=== PATIENT | male | born 1955 | race Caucasian/White ===

== ENCOUNTER 2018-04-07 17:37 | Observation (INO) | payer MEDICARE ==
[2018-04-07] MEDS ORDERED: NITROGLYCERIN SL TABS 0.4 MG TAB SUBLINGUAL STA (17:53)
[2018-04-07] MEDS ORDERED: ASPIRIN 81 MG PO STA (17:53)
--- NOTE | 2018-04-07 17:58 | ED ---
Chest Pain HPI - General Chief Complaint: Chest Pain Stated Complaint: chest pain/high BP Time Seen by Provider: 04/07/18 17:48 Source: patient, RN notes reviewed Mode of arrival: ambulatory Limitations: no limitations - History of Present Illness Initial Comments: This is a 63-year-old male who states he had the onset around 4 PM today of midsternal chest pain 5/10 severity dull in nature does not seem to get worse with movement or deep breathing. He states he has similar episode last evening and lasted for quite a while then resolved spontaneously. He denies any shortness of breath fevers chills nausea vomiting sweats or other symptoms. Of note he does have a recent left 12th rib fracture from a fall while cutting wood also had right shoulder surgery done recently. No cough or phlegm production or other modifying factors at this time MD Complaint: chest pain - Related Data Home Medications Medication Instructions Recorded Confirmed Albuterol Inhaler [Ventolin Hfa 2 puff INHALATION RT-Q8H 04/07/18 04/07/18 Inhaler] Ascorbic Acid [Vitamin C] 500 mg PO DAILY 04/07/18 04/07/18 Aspirin [[place] Aspirin EC] 81 mg PO DAILY 04/07/18 04/07/18 Ferrous Sulfate [Feosol] 325 mg PO DAILY 04/07/18 04/07/18 Fish Oil/Dha/Epa [Fish Oil 1,200 2,400 mg PO DAILY 04/07/18 04/07/18 mg Fish Oil] Lisinopril 20 mg PO DAILY 04/07/18 04/07/18 Multivitamins, Thera [Multivitamin 1 tab PO DAILY 04/07/18 04/07/18 (formulary)] Ranitidine HCl [Zantac] 75 mg PO DAILY 04/07/18 04/07/18 Allergies Allergy/AdvReac Type Severity Reaction Status Date / Time atorvastatin [From Lipitor] AdvReac Unknown Verified 04/07/18 18:50 Review of Systems ROS Statement: Those systems with pertinent positive or pertinent negative responses have been documented in the HPI. ROS Other: All systems not noted in ROS Statement are negative. EKG Findings - EKG Results: EKG: interpreted by [place], sinus rhythm (Sinus rhythm a 64. MN interval 182 QRS duration 102 QT since QTC 406/418 minimal voltage criteria for LVH no acute ST- T wave changes) Past Medical History Past Medical History: Hypertension History of Any Multi-Drug Resistant Organisms: None Reported Additional Past Surgical History / Comment(s): shoulder replacement- 5 weeks ago. broken rib. Past Psychological History: No Psychological Hx Reported Smoking Status: Never smoker Past Alcohol Use History: Occasional Past Drug Use History: None Reported General Exam - General Exam Comments Initial Comments: This is a well-developed well-nourished awake alert oriented 3 male Limitations: no limitations General appearance: alert, in no apparent distress Head exam: Present: atraumatic, normocephalic, normal inspection Eye exam: Present: normal appearance, PERRL, EOMI. Absent: scleral icterus, conjunctival injection, periorbital swelling ENT exam: Present: normal exam, mucous membranes moist Neck exam: Present: normal inspection. Absent: tenderness, meningismus, lymphadenopathy Respiratory exam: Present: normal lung sounds bilaterally, chest wall tenderness (Chest wall tenderness or left lower chest wall no definite reproducibility of anterior chest wall discomfort). Absent: respiratory distress, wheezes, rales, rhonchi, stridor Cardiovascular Exam: Present: regular rate, normal rhythm, normal heart sounds. Absent: systolic murmur, diastolic murmur, rubs, gallop, clicks GI/Abdominal exam: Present: soft, normal bowel sounds. Absent: distended, tenderness, guarding, rebound, rigid Extremities exam: Present: normal inspection, full ROM, normal capillary refill. Absent: tenderness, pedal edema, joint swelling, calf tenderness Back exam: Present: normal inspection Neurological exam: Present: alert, oriented X3, CN II-XII intact Psychiatric exam: Present: normal affect, normal mood Skin exam: Present: warm, dry, intact, normal color. Absent: rash Course Vital Signs 04/07/18 04/07/18 17:39 20:38 Temperature 97 F L Pulse Rate 65 66 Respiratory 16 18 Rate Blood Pressure 169/91 156/94 O2 Sat by Pulse 98 97 Oximetry Chest Pain MDM - MDM I did review the imaging and report no acute findings his d-dimer was elevated a CAT scan was performed and no evidence of a pulmonary embolus. I did a long discussion with him and his family. He had recurrent chest pain it is suspicious for cardiac no the initial workup was negative he will be admitted for evaluation I did discuss the case with the hospitalist. Disposition Clinical Impression: Atypical chest pain, Chest pain, Unstable angina pectoris Disposition: ADMITTED IP TO THIS HOSP Condition: Stable Referrals: Nonstaff,Physician [Primary Care Provider] - 1-2 days
[2018-04-07 18:25] LABS: Basophils % (A) 1 %; Eosinophils # (A) 0.2 k/uL (0-0.7); Eosinophils % (A) 3 %; HCT 41.5 % (39.0-53.0); HGB 13.3 gm/dL (13.0-17.5); Lymphocytes # (A) 0.9 k/uL (1.0-4.8); Lymphocytes % (A) 13 %; MCHC 32.1 g/dL (31.0-37.0); MCV 90.2 fL (80.0-100.0); Mean Platelet Volume 8.8; Monocytes # (A) 0.5 k/uL (0-1.0); Monocytes % (A) 7 %; Neutrophils # (A) 5.3 k/uL (1.3-7.7); Neutrophils % (A) 74 %; Platelet Count 200 k/uL (150-450); RDW 12.9 % (11.5-15.5); WBC 7.1 k/uL (3.8-10.6)
--- NOTE | 2018-04-07 18:28 | XR ---
EXAMINATION TYPE: XR chest 2V DATE OF EXAM: 04/07/2018 COMPARISON: NONE HISTORY: Chest pain TECHNIQUE: Frontal and lateral views of the chest are obtained. FINDINGS: There is large hiatal hernia. There is no heart failure nor confluent pneumonic infiltrate . There are chest leads. There is right shoulder prosthesis. There is spurring in the thoracic spine. Costophrenic angles are clear. IMPRESSION: No active cardiopulmonary disease.
[2018-04-07 18:34] LABS: Albumin 4.1 g/dL (3.5-5.0); Calcium 9.6 mg/dL (8.4-10.2); Magnesium 1.9 mg/dL (1.6-2.3); Potassium 4.6 mmol/L (3.5-5.1); Total Bilirubin 0.4 mg/dL (0.2-1.3); Total Protein 7.7 g/dL (6.3-8.2)
[2018-04-07 18:37] LABS: Creatine Kinase 219 U/L (55-170)
[2018-04-07 18:44] LABS: INR 0.9 (<1.2); Partial Thromboplastin Time 23.4 sec (22.0-30.0); Prothrombin Time 9.8 sec (9.0-12.0)
[2018-04-07 18:47] LABS: D-Dimer 5.5 mg/L FEU (<0.60)
[2018-04-07 18:50] LABS: Creatine Kinase MB 2.2 ng/mL (0.0-2.4); Troponin I <0.012 ng/mL (0.000-0.034)
--- NOTE | 2018-04-07 20:23 | CT ---
EXAMINATION TYPE: CT angio chest DATE OF EXAM: 04/07/2018 7:42 PM COMPARISON: None HISTORY: Chest pain. CT DLP: 626 mGycm Automated exposure control for dose reduction was used. CONTRAST: CTA scan of the thorax is performed with IV Contrast, patient injected with 80ml mL of Isovue 370, pu lmonary embolism protocol. There are 3-D post processed images.. FINDINGS: There is a large hiatal hernia. There is no pericardial effusion. Heart is slightly enlarged. There i s no pleural effusion. There are no hilar masses. There is no mediastinal adenopathy. There is normal contrast opacification of the pulmonary arteries. I see no filling defect. There is a right shoulder prosthesis. Thoracic spine is intact. Thoracic aorta is intact. There is no evidence of aneurysm or dissection. Ascending aorta measures 3.8 cm. IMPRESSION: NO EVIDENCE OF PULMONARY EMBOLISM. NO PULMONARY INFILTRATES. LARGE HIATAL HERNIA.
[2018-04-07] MEDS ORDERED: NITROGLYCERIN SL TABS 0.4 MG TAB SUBLINGUAL PRN (20:51)
[2018-04-07] MEDS ORDERED: HEPARIN SODIUM,PORCINE 5,000 UNIT/ML 1 ML VIAL IV ONE (20:51)
[2018-04-07] MEDS ORDERED: HEPARIN SOD,PORK IN 0.45% NACL 25,000 UNIT in 0.45% NACL 1 250ML.BAG IV SCH (21:00)
[2018-04-07 22:10] VITALS: BMI 33.8
[2018-04-07] MEDS ORDERED: MELATONIN 3 MG TABLET PO SCH ×2 (23:15→23:45)
[2018-04-07] MEDS ORDERED: ACETAMINOPHEN TAB 325 MG TAB PO PRN (23:24)
[2018-04-07] MEDS ORDERED: MAG HYDROX/AL HYDROX/SIMETH 30 ML, HYOSCYAMINE ELIXIR 10 ML, CIMETIDINE HCL 300 MG, LID... PO ONE ×4 (23:33)
[2018-04-08] MEDS: PANTOPRAZOLE 40 MG TABLET PO SCH ×2 (00:11→09:10)
[2018-04-08 00:14] LABS: Creatine Kinase 184 U/L (55-170)
[2018-04-08 00:26] LABS: Creatine Kinase MB 1.6 ng/mL (0.0-2.4); Troponin I <0.012 ng/mL (0.000-0.034)
[2018-04-08] MEDS ORDERED: NALOXONE 0.4 MG/ML 1 ML VIAL IV PRN (01:19)
--- NOTE | 2018-04-08 01:33 | P.HPIM ---
History of Present Illness H&P Date: 04/07/18 Chief Complaint: Epigastric discomfort and pain 63-year-old male with history of hypertension. Patient presented to the hospital due to epigastric abdominal pain. He reports that he had some epigastric discomfort the night before but that resolved on its own however on day of presentation at around 4 PM he had epigastric abdominal pain sharp in nature rated at 5 out of 10 in severity currently is 3 out of 10 in severity. Nonradiating not associated with any shortness of breath dizziness lightheadedness sweating. Patient denies any anginal symptoms in the past. Patient denies any cardiac history. Patient denies any smoking. Patient reports that both incidents when he had the pain he was doing nothing to sitting in chair watching TV. Patient reports that 5 weeks ago he had rotator cuff surgery on his right shoulder and recently he fell while chopping wide and broke his left 12th rib since then he's been taking oxycodone and Motrin. He admits that he takes Motrin on empty stomach and he associates the pain that started today at 4 PM with Motrin that he took within half an hour before the pain started. In the ED initial EKG was unremarkable. Patient was started from the ED on heparin and nitro and admitted under observation. During my interview and during my exam I noticed regular irregularity on heart exam. When I checked the monitor patient is having PVCs every third beat currently asymptomatic. Review of Systems Pertinent positives as noted in HPI. All other systems were reviewed and are negative Past Medical History Past Medical History: Hypertension Additional Past Medical History / Comment(s): Left 12th rib fracture, recent rotator cuff surgery on the right shoulder 5 weeks ago History of Any Multi-Drug Resistant Organisms: None Reported Additional Past Surgical History / Comment(s): shoulder replacement- 5 weeks ago. broken rib. Past Psychological History: No Psychological Hx Reported Smoking Status: Never smoker Past Alcohol Use History: Occasional Past Drug Use History: None Reported - Past Family History Father Family Medical History: CVA/TIA Mother Family Medical History: Diabetes Mellitus Medications and Allergies Home Medications Medication Instructions Recorded Confirmed Type Albuterol Inhaler [Ventolin Hfa 2 puff INHALATION RT-Q8H 04/07/18 04/07/18 History Inhaler] Ascorbic Acid [Vitamin C] 500 mg PO DAILY 04/07/18 04/07/18 History Aspirin [[place] Aspirin EC] 81 mg PO DAILY 04/07/18 04/07/18 History Ferrous Sulfate [Feosol] 325 mg PO DAILY 04/07/18 04/07/18 History Fish Oil/Dha/Epa [Fish Oil 1,200 2,400 mg PO DAILY 04/07/18 04/07/18 History mg Fish Oil] Lisinopril 20 mg PO DAILY 04/07/18 04/07/18 History Multivitamins, Thera [Multivitamin 1 tab PO DAILY 04/07/18 04/07/18 History (formulary)] Ranitidine HCl [Zantac] 75 mg PO DAILY 04/07/18 04/07/18 History Allergies Allergy/AdvReac Type Severity Reaction Status Date / Time atorvastatin [From Lipitor] AdvReac Unknown Verified 04/07/18 21:59 Physical Exam Vitals: Vital Signs Temp Pulse Resp BP Pulse Ox 04/07/18 20:38 66 18 156/94 97 04/07/18 17:39 97 F L 65 16 169/91 98 Intake and Output 04/07/18 04/07/18 04/07/18 06:59 14:59 22:59 Other: Weight 95.254 kg Constitutional: No acute distress, conversant, pleasant Eyes: Anicteric sclerae, moist conjunctiva, no lid-lag Pupils equal round reactive to light ENMT: NC/AT Oropharynx clear, no erythema, exudates Neck: Supple, FROM, no masses, or JVD No carotid bruits No thyromegaly Lungs: Clear to auscultation Clear to percussion Normal respiratory effort, no accessory muscle use Cardiovascular: Heart regular irregularty, cardiac monitoring is showing frequent PVCs every third beat No murmurs, gallops, or rubs No peripheral edema Abdominal: Soft Nontender, no guarding, rebound or rigidity Abdomen moving with respiration Normoactive bowel sounds No hepatomegaly, No splenomegaly No palpable mass No abdominal wall hernia noted Skin: Normal temperature, tone, texture, turgor No induration No subcutaneous nodules No rash, lesions No ulcers Extremities: No digital cyanosis No clubbing Pedal pulses intact and symmetrical Radial pulses intact and symmetrical No calf tenderness Psychiatric: Alert and oriented to person, place and time Appropriate affect fair judgment Neuro Muscles Strength 5/5 in all 4 extremities Sensation to light touch grossly present throughout Cranial nerves II-XII grossly intact No focal sensory deficits Lymphatics: no palpable cervical or supraclavicular , or inguinal lymph nodes Results CBC & Chem 7: 04/07/18 18:00 04/07/18 18:00 Labs: Abnormal Lab Results - Last 24 Hours (Table) 04/07/18 04/07/18 04/07/18 Range/Units 18:00 18:00 18:00 Lymphocytes # 0.9 L (1.0-4.8) k/uL D-Dimer (<0.60) mg/L FEU BUN 21 H (9-20) mg/dL Glucose 107 H (74-99) mg/dL Alkaline Phosphatase 128 H (38-126) U/L Total Creatine Kinase 219 H (55-170) U/L 04/07/18 Range/Units 18:00 Lymphocytes # (1.0-4.8) k/uL D-Dimer 5.50 H (<0.60) mg/L FEU BUN (9-20) mg/dL Glucose (74-99) mg/dL Alkaline Phosphatase (38-126) U/L Total Creatine Kinase (55-170) U/L Assessment and Plan Assessment: 63-year-old male with history of hypertension admitted as an observation with anticipated length of stay less than 48 hours with epigastric abdominal pain rule out acute coronary syndrome. Patient risk factors are his age being a male and hypertension. He indicated that 5 weeks ago he had rotator cuff surgery and recently had a fall and fractured the 12th rib on the left side for which she's been taking oxycodone and Motrins. He admits that he takes Motrins at on empty stomach and he just took a Motrin within half hour of his epigastric discomfort. He otherwise denies any GI bleeding. Initial workup was negative, cardiac monitoring is showing frequent PVCs his potassium and magnesium unremarkable patient is asymptomatic at this time Patient denies any cardiac history, denies any anginal symptoms Plan: Epigastric abdominal pain most likely secondary to gastritis secondary to using Motrin on empty stomach Rule out ACS secondary to following risk factors patient is a male, 63 years old , hypertensive. Initial EKG unremarkable Cardiac monitoring now showing frequent PVCs asymptomatic, potassium and magnesium are unremarkable Cardiac enzyme monitoring Cardiac monitoring Continue home meds Nitro paste and heparin drip from the ED Aspirin and statin Check lipid profile Cardiology consult PPI twice a day Hypertensive currently controlled Continue lisinopril DVT prophylaxis Patient currently on heparin drip as above Surrogate decision-maker: Patient's friend Navi CODE STATUS: Full code Discussed with: Patient, ER, RN Anticipated discharge: <[address]: Home A total of 60 minutes was spent on the care of this complex patient more than 50 % of the time was spent in counseling and care coordination.
[2018-04-08 05:13] LABS: Cholesterol 208 mg/dL (<200); HDL Cholesterol 48 mg/dL (40-60); LDL Cholesterol,Calculated 136 mg/dL (0-99); Triglycerides 120 mg/dL (<150)
[2018-04-08 05:23] LABS: Creatine Kinase 136 U/L (55-170)
[2018-04-08 05:36] LABS: Creatine Kinase MB 1.2 ng/mL (0.0-2.4); Troponin I <0.012 ng/mL (0.000-0.034)
[2018-04-08] MEDS: ALBUTEROL NEBULIZED 2.5 MG/3 ML INHALATION SCH ×2 (08:12)
[2018-04-08] MEDS ORDERED: DHA PO SCH (09:00)
[2018-04-08] MEDS ORDERED: ASPIRIN 81 MG PO SCH (09:00)
[2018-04-08] MEDS ORDERED: FAMOTIDINE 20 MG TAB PO SCH (09:00)
[2018-04-08] MEDS ORDERED: FISH OIL PO SCH (09:00)
[2018-04-08] MEDS ORDERED: EPA PO SCH (09:00)
[2018-04-08] MEDS ORDERED: LISINOPRIL 20 MG TAB PO SCH (09:00)
[2018-04-08] MEDS ORDERED: ASPIRIN 325 MG TAB PO SCH (09:00)
--- NOTE | 2018-04-08 10:34 | P.CRDCN ---
History of Present Illness History of present illness: This is a pleasant 63-year-old male past medical history significant for hypertension and recent fall while chopping wood that caused a left rib fracture. He denies history of coronary artery disease, dyslipidemia or diabetes mellitus. He lives in [facility]. He presented to the ED with complaints of abdominal discomfort that started Monday night while he was having an alcoholic beverage. At that time it was an achy pain in the abdomen that ultimately subsided on its own. Again yesterday he was feeling an achy burning sensation in the abdomen near the umbillicus. He denies chest pain, shortness of breath, dizziness or palpitations. He states at times there has been a burning sensation in the midsternal epigastric region as well. At the time of my exam he is seen resting comfortably in bed with his significant other at the bedside. He continues to complain of a dull achy sensation in the abdomen that seems to be mildly worse with palpation. He denies any symptoms of chest discomfort. He states he has been taking ibuprofen 800 mg every 6 hours for the previous 2 weeks secondary to his rib fracture. EKG reveals sinus mechanism with no acute ST or T-wave abnormalities. Chest x-ray is negative for an acute cardiopulmonary process. Laboratory data reviewed, hhg 13.3, plt 200, WBC 7.1, d-dimer 5.5, sodium 140, potassium 4.6, magnesium 1.9, creatinine 1.19, cardiac enzymes negative 3, LDL 136, HDL 48. Current cardiac medications include lisinopril 20 mg daily and aspirin 81 mg daily. At the time of my exam: CONSTITUTIONAL: Denies fever. Denies chills. EYES: Denies blurred vision. Denies vision changes. Denies eye pain. EARS, NOSE, MOUTH & THROAT: Denies headache. Denies sore throat. Denies ear pain. CARDIOVASCULAR: Denies chest pain. Denies shortness of breath. Denies orthopnea. Denies PND. Denies palpitations. RESPIRATORY: Denies cough. GASTROINTESTINAL:complains of dull abdominal pain. Denies diarrhea. Denies constipation. Denies nausea. Denies vomiting. MUSCULOSKELETAL: Denies myalgias. INTEGUMENTARY: Denies pruitis. Denies rash. NEUROLOGIC: Denies numbness. Denies tingling. Denies weakness. PSYCHIATRIC: Denies anxiety. Denies depression. ENDOCRINE: Denies fatigue. Denies weight change. Denies polydipsia. Denies polyurina. GENITOURINARY: Denies burning, hematuria or urgency with micturation. HEMATOLOGIC: Denies history of anemia. Denies bleeding. blood pressure 143/92 heart rate 61 afebrile maintaining oxygen saturation on room air GENERAL: This is a 63-year-old male in no apparent distress at the time of my examination. HEENT: Head is atraumatic, normocephalic. Pupils are equal, round. Sclerae anicteric. Conjunctivae are clear. Mucous membranes of the mouth are moist. Neck is supple. There is no jugular venous distention. No carotid bruit is heard. LUNGS: Clear to auscultation no wheezes, rales or rhonchi. No chest wall tenderness is noted on palpation or with deep breathing. HEART: Regular rate and rhythm without murmurs, rubs or gallops. S1 and S2 heard. ABDOMEN: Soft, nontender. Mild discomfort near umbillicus on palpation. Bowel sounds are heard. No organomegaly noted. EXTREMITIES: No evidence of peripheral edema and no calf tenderness noted. VASCULAR: Radial and dorsalis pedis pulses palpated, no evidence of clubbing. NEUROLOGIC: Patient is awake, alert and oriented x3. ASSESSMENT Epigastric pain, an acute coronary event has been ruled out with no EKG evidence of ischemia and negative cardiac enzymes. Hypertension Sleep apnea, non-compliant with CPAP Recent 12th left rib fracture PLAN An acute coronary event has been ruled out with no EKG evidence of ischemia and negative cardiac enzymes. Recommend compliance with CPAP for sleep apnea. Advised him of bradycardia while sleeping. He may be discharged home to follow up with his PCP for outpatient stress testing. This has been discussed with him in detail and he is agreeable. Ongoing medical management of probably gastritis secondary to NSAID use. Thank you kindly for this consultation. Nurse Practitioner note has been reviewed, I agree with a documented findings and plan of care. Patient was seen and examined. Past Medical History Past Medical History: Hypertension Additional Past Medical History / Comment(s): Left 12th rib fracture, recent rotator cuff surgery on the right shoulder 5 weeks ago History of Any Multi-Drug Resistant Organisms: None Reported Additional Past Surgical History / Comment(s): shoulder replacement- 5 weeks ago. broken rib. Past Anesthesia/Blood Transfusion Reactions: No Reported Reaction Past Psychological History: No Psychological Hx Reported Smoking Status: Never smoker Past Alcohol Use History: Occasional Past Drug Use History: None Reported - Past Family History Father Family Medical History: CVA/TIA Mother Family Medical History: Diabetes Mellitus Medications and Allergies Home Medications Medication Instructions Recorded Confirmed Type Albuterol Inhaler [Ventolin Hfa 2 puff INHALATION RT-Q8H 04/07/18 04/07/18 History Inhaler] Ascorbic Acid [Vitamin C] 500 mg PO DAILY 04/07/18 04/07/18 History Aspirin [[place] Aspirin EC] 81 mg PO DAILY 04/07/18 04/07/18 History Ferrous Sulfate [Feosol] 325 mg PO DAILY 04/07/18 04/07/18 History Fish Oil/Dha/Epa [Fish Oil 1,200 2,400 mg PO DAILY 04/07/18 04/07/18 History mg Fish Oil] Lisinopril 20 mg PO DAILY 04/07/18 04/07/18 History Multivitamins, Thera [Multivitamin 1 tab PO DAILY 04/07/18 04/07/18 History (formulary)] Ranitidine HCl [Zantac] 75 mg PO DAILY 04/07/18 04/07/18 History Allergies Allergy/AdvReac Type Severity Reaction Status Date / Time atorvastatin [From Lipitor] AdvReac Unknown Verified 04/07/18 21:59 Physical Exam Vitals: Vital Signs Temp Pulse Pulse Resp BP BP Pulse Ox 04/08/18 08:00 98.3 F 61 18 143/92 97 04/08/18 04:00 98.6 F 60 18 122/63 99 04/08/18 00:00 18 04/07/18 23:51 97.7 F 60 18 146/90 97 04/07/18 22:33 18 04/07/18 22:18 97.6 F 78 18 177/93 98 04/07/18 21:42 98.0 F 67 17 163/96 98 04/07/18 20:38 66 18 156/94 97 04/07/18 17:39 97 F L 65 16 169/91 98 Intake and Output 04/07/18 04/08/18 04/08/18 22:59 06:59 14:59 Intake Total 75.167 Balance 75.167 Intake: Intake, IV Titration 75.167 Amount Heparin Sod,Pork in 0.45% 75.167 NaCl 25,000 unit In 0.45 % NaCl 1 250ml.bag @ 10 mls/hr IV .Q24H [facility] Rx#: [id number] Other: Voiding Method Toilet # Voids 1 Weight 95.2 kg Results 04/07/18 18:00 04/07/18 18:00 Cardiac Enzymes 04/07/18 04/07/18 04/07/18 Range/Units 18:00 18:00 23:21 AST 33 (17-59) U/L CK-MB (CK-2) 2.2 1.6 (0.0-2.4) ng/mL Troponin I <0.012 <0.012 (0.000-0.034) ng/mL 04/08/18 Range/Units 04:41 AST (17-59) U/L CK-MB (CK-2) 1.2 (0.0-2.4) ng/mL Troponin I <0.012 (0.000-0.034) ng/mL Coagulation 04/07/18 04/08/18 Range/Units 18:00 04:41 PT 9.8 (9.0-12.0) sec APTT 23.4 34.5 H (22.0-30.0) sec Lipids 04/08/18 Range/Units 04:41 Triglycerides 120 (<150) mg/dL Cholesterol 208 H (<200) mg/dL HDL Cholesterol 48 (40-60) mg/dL CBC 04/07/18 Range/Units 18:00 WBC 7.1 (3.8-10.6) k/uL RBC 4.60 (4.30-5.90) m/uL Hgb 13.3 (13.0-17.5) gm/dL Hct 41.5 (39.0-53.0) % Plt Count 200 (150-450) k/uL Comprehensive Metabolic Panel 04/07/18 Range/Units 18:00 Sodium 140 (137-145) mmol/L Potassium 4.6 (3.5-5.1) mmol/L Chloride 107 (98-107) mmol/L Carbon Dioxide 24 (22-30) mmol/L BUN 21 H (9-20) mg/dL Creatinine 1.19 (0.66-1.25) mg/dL Glucose 107 H (74-99) mg/dL Calcium 9.6 (8.4-10.2) mg/dL AST 33 (17-59) U/L ALT 32 (21-72) U/L Alkaline Phosphatase 128 H (38-126) U/L Total Protein 7.7 (6.3-8.2) g/dL Albumin 4.1 (3.5-5.0) g/dL Current Medications Generic Name Dose Route Start Last Admin Trade Name Freq PRN Reason Stop Dose Admin Albuterol Sulfate 2.5 mg 04/08/18 00:00 04/08/18 08:12 Ventolin Nebulized INHALATION Not Given RT-Q8H [facility] Ascorbic Acid 500 mg 04/08/18 12:00 04/08/18 09:10 Vitamin C PO 500 mg 1200 HANNAH Administration Aspirin 81 mg 04/09/18 09:00 Aspirin PO DAILY [facility] Heparin Sodium (Porcine) 5,000 unit 04/08/18 21:00 Heparin SQ Q12HR [facility] Lisinopril 20 mg 04/08/18 09:00 04/08/18 09:10 Zestril PO 20 mg DAILY HANNAH Administration Melatonin 6 mg 04/07/18 23:45 04/08/18 00:11 Melatonin PO 6 mg HS HANNAH Administration Multivitamins 1 each 04/08/18 12:00 04/08/18 09:10 Theragran PO 1 each 1200 HANNAH Administration Naloxone HCl 0.2 mg 04/08/18 01:19 Narcan IV Q2M PRN Opioid Reversal Nitroglycerin 0.4 mg 04/07/18 20:51 Nitrostat SUBLINGUAL Q5M PRN Chest Pain Pantoprazole Sodium 40 mg 04/07/18 23:45 04/08/18 09:10 Protonix PO 40 mg AC-BID HANNAH Administration Intake and Output 04/07/18 04/08/18 04/08/18 22:59 06:59 14:59 Intake Total 75.167 Balance 75.167 Intake: Intake, IV Titration 75.167 Amount Heparin Sod,Pork in 0.45% 75.167 NaCl 25,000 unit In 0.45 % NaCl 1 250ml.bag @ 10 mls/hr IV .Q24H [facility] Rx#: [id number] Other: Voiding Method Toilet # Voids 1 Weight 95.2 kg 04/07/18 18:00 04/07/18 18:00
--- NOTE | 2018-04-08 11:31 | P.DS ---
Providers Date of admission: 04/07/18 20:51 Expected date of discharge: 04/08/18 Attending physician: Pierce Zhu MD Consults: 04/07/18 20:51 Consult Physician Urgent Consulting Provider: Twan Calix Consult Reason/Comments: Chest pain Do you want consulting provider notified?: Yes Primary care physician: Physician Nonstaff - Discharge Diagnosis(es) (1) Hypertension Current Visit: Yes Status: Acute (2) GERD (gastroesophageal reflux disease) Current Visit: Yes Status: Acute (3) Rib fracture Current Visit: Yes Status: Acute (4) Atypical chest pain Current Visit: Yes Status: Acute Hospital Course: 63-year-old male with history of hypertension. Patient presented to the hospital due to epigastric abdominal pain. He reports that he had some epigastric discomfort the night before but that resolved on its own. However on day of presentation at around 4 PM he had epigastric abdominal pain, sharp in nature, rated at 5 out of 10 in severity, currently is 3 out of 10 in severity. Nonradiating, not associated with any shortness of breath, dizziness, lightheadedness, or sweating. Patient denies any anginal symptoms in the past. Patient denies any cardiac history. Patient denies any smoking. Patient reports that both incidents when he had the pain he was doing nothing but sitting in chair watching TV. Patient reports that 5 weeks ago he had rotator cuff surgery on his right shoulder and recently he fell and broke his left 12th rib. Since then he's been taking oxycodone and Motrin. He admits that he takes Motrin on empty stomach and he associates the pain that started today at 4 PM with Motrin that he took within half an hour before the pain started. In the ED initial EKG was unremarkable. Patient was started from the ED on heparin and nitro and admitted under observation. With regard to his chest pain, it appeared atypical likely secondary to GERD, plan was to rule out acute coronary syndrome. Troponin was less than 0.0123, EKG showing normal sinus rhythm. His d-dimer was initially elevated, but CTA of the chest ruled out PE. Cardiology was consulted at this time and recommended that the patient be discharged with a stress test in the outpatient setting. Patient was seen and examined prior to discharge. No acute events overnight. Patient reports complete resolution of his chest pain. No shortness of breath or palpitations. No nausea or vomiting. Patient is looking for to going home. General: [non toxic], [no distress], [appears at stated age] Derm: [warm], [dry] Head: [atraumatic], [normocephalic], [symmetric] Eyes: [EOMI], [no lid lag], [anicteric sclera] Mouth: [no lip lesion], [mucus membranes moist] Cardiovascular: [S1S2 reg], [no murmur], [positive posterior tibial pulse bilateral], Lungs: [CTA bilateral], [no rhonchi, no rales] , [no accessory muscle use] Abdominal: [soft], [ nontender to palpation], [no guarding], [no appreciable organomegaly] Ext: [no gross muscle atrophy], [no edema], [no contractures] Neuro: [no focal neuro deficits] Psych: [Alert], [oriented], [appropriate affect] Acute coronary syndrome has been ruled out. He has been cleared for discharge by cardiology. Patient was advised follow-up with his primary care provider within 1-2 days of discharge. Patient has been advised to undergo cardiac stress test through his primary care provider. Pertinent Studies: Chest CTA Patient Condition at Discharge: Stable Plan - Discharge Summary New Discharge Prescriptions: New Aspirin 81 mg PO DAILY chew Esomeprazole Magnesium [NexIUM] 20 mg PO DAILY #30 cap Continue Multivitamins, Thera [Multivitamin (formulary)] 1 tab PO DAILY Lisinopril 20 mg PO DAILY Fish Oil/Dha/Epa [Fish Oil 1,200 mg Fish Oil] 2,400 mg PO DAILY Ferrous Sulfate [Feosol] 325 mg PO DAILY Aspirin [[place] Aspirin EC] 81 mg PO DAILY Ascorbic Acid [Vitamin C] 500 mg PO DAILY Albuterol Inhaler [Ventolin Hfa Inhaler] 2 puff INHALATION RT-Q8H Discontinued Ranitidine HCl [Zantac] 75 mg PO DAILY Discharge Medication List Albuterol Inhaler [Ventolin Hfa Inhaler] 2 puff INHALATION RT-Q8H 04/07/18 [ History] Ascorbic Acid [Vitamin C] 500 mg PO DAILY 04/07/18 [History] Aspirin [[place] Aspirin EC] 81 mg PO DAILY 04/07/18 [History] Ferrous Sulfate [Feosol] 325 mg PO DAILY 04/07/18 [History] Fish Oil/Dha/Epa [Fish Oil 1,200 mg Fish Oil] 2,400 mg PO DAILY 04/07/18 [ History] Lisinopril 20 mg PO DAILY 04/07/18 [History] Multivitamins, Thera [Multivitamin (formulary)] 1 tab PO DAILY 04/07/18 [History ] Aspirin 81 mg PO DAILY chew 04/08/18 [Rx] Esomeprazole Magnesium [NexIUM] 20 mg PO DAILY #30 cap 04/08/18 [Rx] Follow up Appointment(s)/Referral(s): Nonstaff,Physician [Primary Care Provider] - 1-2 days Activity/Diet/Wound Care/Special Instructions: Diet; HEART healthy Please follow-up with your primary care provider within 1-2 days of discharge. Please take all medications as advised. Please obtain a cardiac stress test through your primary care provider. Discharge Disposition: HOME SELF-CARE
[2018-04-08] MEDS ORDERED: FERROUS SULFATE 325 MG TAB PO SCH (12:00)
[2018-04-08] MEDS ORDERED: MULTIVITAMINS, THERA 1 EACH TAB PO SCH (12:00)
[2018-04-08] MEDS ORDERED: ASCORBIC ACID 500 MG TAB PO SCH (12:00)
[2018-04-08 12:06] VITALS: BP 129/86; PULSE 60; RESP 16; TEMP 98.1
[2018-04-08] MEDS ORDERED: HEPARIN SODIUM,PORCINE 5,000 UNIT/ML 1 ML VIAL SQ SCH (21:00)
[2018-04-09] MEDS ORDERED: ASPIRIN 81 MG PO SCH (09:00)
== END 2018-04-08 12:17 | disposition home or self-care (01) ==
LOC: EC 17:37 → 1SOBS 20:51
PROVIDERS: ADMIT Internal Medicine; ATTEND Internal Medicine
DX: K21.9 Gastro-esophageal reflux disease without esophagitis (principal); R07.89 Other chest pain; I10 Essential (primary) hypertension; R79.89 Other specified abnormal findings of blood chemistry; Z98.890 Other specified postprocedural states; K29.70 Gastritis, unspecified, without bleeding; G47.30 Sleep apnea, unspecified; Z91.19 Patient's noncompliance with other medical treatment and regimen; S22.32XA Fracture of one rib, left side, initial encounter for closed fracture; I49.3 Ventricular premature depolarization; Z83.3 Family history of diabetes mellitus; Z82.3 Family history of stroke; Z79.899 Other long term (current) drug therapy; Z79.82 Long term (current) use of aspirin; Z88.8 Allergy status to other drugs, medicaments and biological substances
CPT/HCPCS: 96366 ×2; 96376; 96365; 99285; 36415; 93005; 85379; 83880; 80061; 80053; 82150; 82550 ×2; 82553 ×2; 83690; 83735; 84484 ×2; 85025; 85610; 85730 ×2; 71046; 71275; G0378 ×2; J1644 ×2; Q9967